=== PATIENT | female | born 1965 | race Caucasian/White ===

== ENCOUNTER 2017-04-26 09:23 | Emergency (ER) | payer OTHER ==
[2017-04-26] MEDS ORDERED: ceFUROXime TAB(*) 250 MG PO ONE (09:45)
[2017-04-26 09:57] VITALS: BP 120/80
--- NOTE | 2017-04-30 10:50 | ED ---
Nisa Navarrete Thomas, scribed for Emerson Yi MD on 04/26/17 at 0945 . Skin Complaint - HPI Summary HPI Summary: Pt is a 52 y/o female c/o a rash on her R lower back starting 9 days ago. She denies seeing a tick on her skin but suspects a tick bite. SHx: no tobacco use, no drug use, occasional alcohol use. - History of Current Complaint Chief Complaint: EDGeneral Time Seen by Provider: 04/26/17 09:30 Stated Complaint: TICK BITE RIGHT HIP Hx Obtained From: Patient Onset/Duration: Started Days Ago - at least 9 days ago Skin Exposure Onset/Duration: Days Ago, Weeks Ago Timing: Constant, Lasting Days Current Severity: Mild Pain Intensity: 3 Pain Scale Used: 0-10 Numeric Skin Location: Other: - R flank/hip Aggravating Symptom(s): Nothing Alleviating Symptom(s): Nothing Associated Signs & Symptoms: Negative Related History: Insect Bite/Sting - pt suspects tick bite - Allergy/Home Medications Allergies/Adverse Reactions: Allergies Allergy/AdvReac Type Severity Reaction Status Date / Time Erythromycin AdvReac Mild GI Upset Verified 09/18/15 13:11 Tetracycline AdvReac Mild GI Upset Verified 09/18/15 13:11 PMH/Surg Hx/FS Hx/Imm Hx Previously Healthy: No Endocrine/Hematology History: Comment Only: Hx Diabetes - pre-diabetic possibly Respiratory History: Reports: Other Respiratory Problems/Disorders - allergic rhinitis GI History: Reports: Hx Irritable Bowel History: Reports: Other Problems/Disorders - hx childhood urethral stricture d/t frequent UTI's Musculoskeletal History: Reports: Hx Back Problems - recent dx slipped disc, Hx Orthopedic Injury - ankle reconstruction, Other Musculoskeletal History - chronic neck pain Denies: Hx Rheumatoid Arthritis, Hx Osteoporosis Sensory History: Reports: Hx Hearing Problem Neurological History: Reports: Hx Headaches, Hx Migraine - Cancer History Hx Chemotherapy: No Hx Radiation Therapy: No - Surgical History Surgery Procedure, Year, and Place: TONSILLECTOMY, wisdom teeth. LEFT ANKLE SURGERY FOR BROKEN TALUS. D&C. uterine ablation Infectious Disease History: Denies: History Other Infectious Disease, Traveled Outside the [place] in Last 30 Days - Family History Known Family History: Positive: Other - POS: father brain tumor, mother/brother CA, sister thyroid disease - Social History Alcohol Use: None Substance Use Type: Reports: None Smoking Status (MU): Never Smoked Tobacco Review of Systems Constitutional: Negative Eyes: Negative ENT: Negative Cardiovascular: Negative Respiratory: Negative Gastrointestinal: Negative Genitourinary: Negative Musculoskeletal: Negative Skin: Negative Positive: Rash - R hip/flank Neurological: Negative Psychological: Normal All Other Systems Reviewed And Are Negative: Yes Physical Exam - Summary Physical Exam Summary: VITAL SIGNS: Reviewed. GENERAL: Patient is a well developed and nourished female who is lying comfortable in the stretcher. Patient is not in any acute respiratory distress. HEAD AND FACE: Normocephalic EYES: PERRLA, EOMI x 2. EARS: Hearing grossly intact. MOUTH: Oropharynx within normal limits. NECK: Supple, trachea is midline, no adenopathy, no JVD, no carotid bruit. CHEST: Symmetric, no tenderness at palpation LUNGS: Clear to auscultation bilaterally. No wheezing or crackles. CVS: Regular rate and rhythm, S1 and S2 present, no murmurs or gallops appreciated. ABDOMEN: Soft, non-tender. Bowel sounds are normal. No abdominal abnormal pulsations. EXTREMITIES: Full ROM in all major joints, no edema, no cyanosis or clubbing. NEURO: Alert and oriented x 3. No acute neurological deficits. Speech is normal and follows commands. SKIN: Dry and warm. On the R hip/flank there is a rash with central clearing. Triage Information Reviewed: Yes Vital Signs On Initial Exam: Initial Vitals Temp Pulse Resp BP Pulse Ox 97.1 F 66 16 122/85 100 04/26/17 09:24 04/26/17 09:24 04/26/17 09:24 04/26/17 09:24 04/26/17 09:24 Vital Signs Reviewed: Yes Diagnostics - Vital Signs Vital Signs Temp Pulse Resp BP Pulse Ox 04/26/17 09:24 97.1 F 66 16 122/85 100 - Laboratory Lab Results: Lab Results 04/26/17 Range/Units 09:55 Lyme Disease Serology Negative (Negative) Lab Statement: Any lab studies that have been ordered have been reviewed, and results considered in the medical decision making process. Course/Dx - Course Assessment/Plan: The patient is a 52 y/o female c/o a rash on her R lower back starting 9 days ago. She denies seeing a tick on her skin but suspects a tick bite. In the ED course, the patient shows that she had erythema with central clearing, which has been seen in Lyme disease. [place] titers will be followed by PCP in the next couple days because the Lyme titers are a send-out test. In the meantime, the patient was started on Cefuroxime 500mg BID for 20 days. This medication was chosen because the patient is allergic to tetracycline. The patient is hemodynamically stable and alert & oriented x 3. - Differential Diagnoses - Skin Complaint Differential Diagnoses: Allergic Reaction, Cellulitis, Drug Rash, Poison [place], Poison [place], Scabies - Diagnoses Provider Diagnoses: Rash, R/o lyme disease Discharge - Discharge Plan Condition: Stable Disposition: HOME Prescriptions: ceFUROXime TAB(*) [Ceftin TAB 250 MG(*)] 500 mg PO BID #40 tab Patient Education Materials: Acute Rash (ED), Tick Bite (ED) Referrals: Hollie Talley MD [Primary Care Provider] - 3 Days (Follow up with PCP.) The documentation as recorded by the Nisa ordonez Thomas accurately reflects the service I personally performed and the decisions made by Kd suarez Walter, MD.
== END 2017-04-26 10:10 | disposition home or self-care (01) ==
LOC: ED 09:23
DX: R21 Rash and other nonspecific skin eruption (principal); A69.20 Lyme disease, unspecified
CPT/HCPCS: 86618; 99282

== ENCOUNTER 2019-01-25 15:13 | Emergency (ER) | payer OTHER ==
--- NOTE | 2019-01-25 16:42 | ED ---
Abdominal Pain/Female - HPI Summary HPI Summary: 53 YO wf p/w right posterior back pain radiating to the flank since this AM, pain was so bad that she got on "her all fours" due to such intense pain, does not recall relation to food or position.. Pain does NOT radiate to the groin and has no h/o renal stones - History of Current Complaint Chief Complaint: UCBackPain Stated Complaint: BACK PAIN Time Seen by Provider: 01/25/19 15:43 Hx Obtained From: Patient Hx Last Menstrual Period: 2006 after procedure Onset/Duration: Sudden Onset, Lasting Hours Timing: Intermittent Episode Lasting Severity Initially: Severe Severity Currently: Mild Pain Intensity: 4 Allergies/Adverse Reactions: Allergies Allergy/AdvReac Type Severity Reaction Status Date / Time codeine Allergy Severe GI Upset Verified 01/25/19 17:34 erythromycin base Allergy Severe GI Verified 01/25/19 15:30 Tetracyclines Allergy Severe GI Upset Verified 01/25/19 15:30 Home Medications: Home Medications Cholecalciferol (Vitamin D3) [Vitamin D3] 1,000 unit PO DAILY 01/25/19 [History Confirmed 01/25/19] PMH/Surg Hx/FS Hx/Imm Hx Previously Healthy: Yes Endocrine/Hematology History: Comment Only: Hx Diabetes - pre-diabetic possibly Respiratory History: Reports: Other Respiratory Problems/Disorders - allergic rhinitis GI History: Reports: Hx Irritable Bowel History: Reports: Other Problems/Disorders - hx childhood urethral stricture d/t frequent UTI's Musculoskeletal History: Reports: Hx Back Problems - recent dx slipped disc, Hx Orthopedic Injury - ankle reconstruction, Other Musculoskeletal History - chronic neck pain Denies: Hx Rheumatoid Arthritis, Hx Osteoporosis Sensory History: Reports: Hx Hearing Problem Neurological History: Reports: Hx Headaches, Hx Migraine - Cancer History Hx Chemotherapy: No Hx Radiation Therapy: No - Surgical History Surgery Procedure, Year, and Place: TONSILLECTOMY, wisdom teeth. LEFT ANKLE SURGERY FOR BROKEN TALUS. D&C. uterine ablation Infectious Disease History: No Infectious Disease History: Denies: History Other Infectious Disease, Traveled Outside the [place] in Last 30 Days - Family History Known Family History: Positive: Other - POS: father brain tumor, mother/brother CA, sister thyroid disease - Social History Alcohol Use: None Substance Use Type: Reports: None Smoking Status (MU): Never Smoked Tobacco Review of Systems - ROS Summary Review of Systems Summary: Constitutional: Negative Skin: Negative Eyes: Negative ENT: Negative Cardiovascular: Negative Respiratory: Negative Gastrointestinal: RUQ and right flank tenderness Genitourinary: Negative Musculoskeletal: Negative Neurological: Negative Psychological: Normal All Other Systems Reviewed And Are Negative: Yes All Other Systems Reviewed And Are Negative: Yes Physical Exam - Summary Physical Exam Summary: Triage Information Reviewed: Yes Appearance: No Pain Distress Eye Exam: Normal ENT Exam: Normal Neck: Supple Respiratory: Lungs clear, Normal breath sounds Cardiovascular: Positive: RRR, S1, S2 Abdominal Exam: RUQ and right flank tenderness Musculoskeletal Exam: Normal Neurological Exam: CN 2-12 grossly intact Psychological Exam: Normal Skin Exam: Normal Vital Signs On Initial Exam: Initial Vitals Temp Pulse Resp BP Pulse Ox 36.6 C 65 17 110/72 98 01/25/19 15:20 01/25/19 15:20 01/25/19 15:20 01/25/19 15:20 01/25/19 15:20 Diagnostics - Vital Signs Vital Signs Temp Pulse Resp BP Pulse Ox 01/25/19 15:20 36.6 C 65 17 110/72 98 - Laboratory Lab Results: Lab Results 01/25/19 Range/Units 15:47 POC Urine Color Yellow POC Urine Clarity Clear POC Urine pH 7.0 (5-9) POC Ur Specif [place] 1.015 (1.010-1.030) POC Urine Protein Negative (Negative) POC Ur Glucose (UA) Negative (Negative) POC Urine Ketones Negative (Negative) POC Urine Blood Negative (Negative) POC Urine Nitrite Negative (Negative) POC Urine Bilirubin Negative (Negative) POC Urine Urobilinogen 0.2 (Negative) POC U Leukocyte [place] Negative (Negative) Lab Statement: Any lab studies that have been ordered have been reviewed, and results considered in the medical decision making process. Abdominal Pain Fem Course/Dx - Course Course Of Treatment: RUQ US- Cholelithiasis and positive sonographic Francisco's sign. Negative for gallbladder wallthickening or pericholecystic fluid to strongly favor acute cholecystitis. Pt to go to general surgeon to schedule a cholecystectomy, currently non-toxic, afebrile, will be on cipro/flagyl just in case GBstone gets stuck at the neck causing infection, but advised to go to ED if pain returns for eval sooner to go to OR for procedure. Gave # for Dr Adkins- surgeon and Dr Head GI for f/u - Diagnoses Provider Diagnoses: Cholecystitis, acute, Choledocholithiasis with acute cholecystitis Discharge - Sign-Out/Discharge Documenting (check all that apply): Patient Departure All imaging exams completed and their final reports reviewed: Yes - Discharge Plan Condition: Stable Disposition: HOME Prescriptions: Ciprofloxacin TAB* [Cipro 500 MG TAB*] 500 mg PO BID 10 Days #20 tab metroNIDAZOLE [Flagyl 500 MG TAB] 500 mg PO TID 10 Days #1 tab Patient Education Materials: Cholecystitis (ED), Gallstones (ED) Referrals: Aime Adkins MD [Medical Doctor] - Toby Head MD [Medical Doctor] - Additional Instructions: PLEASE GO TO ED IF INTENSE PAIN RETURNS - Billing Disposition and Condition Condition: STABLE Disposition: Home
[2019-01-25 17:38] VITALS: BP 119/75
== END 2019-01-25 18:15 | disposition home or self-care (01) ==
LOC: UCEAST 15:13
DX: K80.42 Calculus of bile duct with acute cholecystitis without obstruction (principal); E11.9 Type 2 diabetes mellitus without complications; Z88.5 Allergy status to narcotic agent; Z88.1 Allergy status to other antibiotic agents
CPT/HCPCS: 76705; 81003; 99212; G0463

== ENCOUNTER 2019-01-26 09:12 | Emergency (ER) | payer OTHER ==
[2019-01-26] MEDS ORDERED: Ondansetron INJ* 2 MG/ML VIAL IV ONE (10:12)
[2019-01-26] MEDS ORDERED: Ondansetron ODT TAB* 4 MG PO ONE (10:12)
[2019-01-26] MEDS ORDERED: Meperidine SYRINGE* 50 MG/ML IV ONE (10:12)
--- NOTE | 2019-01-26 10:17 | ED ---
Abdominal Pain/Female - HPI Summary HPI Summary: A 53 y/o female presents to [facility] with a chief complaint of abdominal pain radiating to her back since yesterday. She reports that her pain was in her flank region but now her pain is radiating to her back and up to her left shoulder blade and neck. At triage she rated her pain as a 4/10 in severity. The patient went to yesterday where she had a gallbladder ultrasound that showed gallstones. The patient reports that she did not have any bowel movements today but denies any urinary symptoms. She reports that yesterday she had a granola bar at 10:00 and an apple at 12:00 and that she hasnt eaten yet today. Vital signs while in room HR: 60 bpm, O2 Sat: 98, BP: 97/67. - History of Current Complaint Chief Complaint: EDAbdPain Stated Complaint: GAL BLADDER ISSUES PER PT Time Seen by Provider: 01/26/19 09:41 Hx Obtained From: Patient Hx Last Menstrual Period: 2006 after procedure Onset/Duration: Sudden Onset, Lasting Days, Still Present Timing: Days Severity Initially: Moderate Severity Currently: Moderate Pain Intensity: 4 Pain Scale Used: 0-10 Numeric Location: Diffuse Radiates: Yes Radiates to: Back, Other - right shoulder blade and neck Character: Other: - Unable to describe Aggravating Factor(s): Nothing Alleviating Factor(s): Nothing Associated Signs and Symptoms: Positive: Back Pain. Negative: Fever, Urinary Symptoms Allergies/Adverse Reactions: Allergies Allergy/AdvReac Type Severity Reaction Status Date / Time codeine Allergy Severe GI Upset Verified 01/26/19 09:15 erythromycin base Allergy Severe GI Verified 01/26/19 09:15 Tetracyclines Allergy Severe GI Upset Verified 01/26/19 09:15 hydrocodone Allergy Vomiting Verified 01/26/19 09:37 oxycodone Allergy Vomiting Verified 01/26/19 09:37 tramadol Allergy Vomiting Verified 01/26/19 09:37 Home Medications: Home Medications Ascorbic Acid [Vitamin C] 1,000 mg PO DAILY 01/26/19 [History Confirmed 01/26/19 ] Cholecalciferol TAB* [Vitamin D TAB*] 1,000 units PO DAILY 01/26/19 [History Confirmed 01/26/19] Multivitamin [One-Daily Multi-Vitamin] 1 tab PO DAILY 01/26/19 [History Confirmed 01/26/19] Triamcinolone NASAL SPRAY* [Nasacort Aq Nasal [place]*] 1 spray BOTH NARES DAILY PRN 01/26/19 [History Confirmed 01/26/19] PMH/Surg Hx/FS Hx/Imm Hx Endocrine/Hematology History: Comment Only: Hx Diabetes - pre-diabetic possibly Respiratory History: Reports: Other Respiratory Problems/Disorders - allergic rhinitis GI History: Reports: Hx Irritable Bowel History: Reports: Other Problems/Disorders - hx childhood urethral stricture d/t frequent UTI's Musculoskeletal History: Reports: Hx Back Problems - recent dx slipped disc, Hx Orthopedic Injury - ankle reconstruction, Other Musculoskeletal History - chronic neck pain Denies: Hx Rheumatoid Arthritis, Hx Osteoporosis Sensory History: Reports: Hx Hearing Problem Neurological History: Reports: Hx Headaches, Hx Migraine - Cancer History Hx Chemotherapy: No Hx Radiation Therapy: No - Surgical History Surgery Procedure, Year, and Place: TONSILLECTOMY, wisdom teeth. LEFT ANKLE SURGERY FOR BROKEN TALUS. D&C. uterine ablation Infectious Disease History: No Infectious Disease History: Denies: History Other Infectious Disease, Traveled Outside the [place] in Last 30 Days - Family History Known Family History: Positive: Other - POS: father brain tumor, mother/brother CA, sister thyroid disease - Social History Alcohol Use: Rare Alcohol Amount: wine occasionally Substance Use Type: Reports: None Smoking Status (MU): Never Smoked Tobacco Review of Systems Negative: Fever Positive: Abdominal Pain, Other - positive: no BM today Negative: dysuria, hematuria Positive: Arthralgia, Myalgia All Other Systems Reviewed And Are Negative: Yes Physical Exam - Summary Physical Exam Summary: Appearance: The patient is well-nourished in no acute distress and in no acute pain. Skin: The skin is warm and dry and skin color reflects adequate perfusion. HEENT: The head is normocephalic and atraumatic. The pupils are equal and reactive. The conjunctivae are clear and without drainage. Nares are patent and without drainage. Mouth reveals moist mucous membranes and the throat is without erythema and exudate. The external ears are intact. The ear canals are patent and without drainage. The tympanic membranes are intact. Neck: The neck is supple with full range of motion and non-tender. There are no carotid bruits. There is no neck vein distension. Respiratory: Chest is non-tender. Lungs are clear to auscultation and breath sounds are symmetrical and equal. Cardiovascular: Heart is regular rate and rhythm. There is no murmur or rub auscultated. There is no peripheral edema and pulses are symmetrical and equal. Abdomen: Mild epigastric tenderness. There are normal bowel sounds heard in all four quadrants and there is no organomegaly palpated. Musculoskeletal: There is no back tenderness noted. Extremities are non-tender with full range of motion. There is good capillary refill. There is no peripheral edema or calf tenderness elicited. Neurological: Patient is alert and oriented to person, place and time. The patient has symmetrical motor strength in all four extremities. Cranial nerves are grossly intact. Deep tendon reflexes are symmetrical and equal in all four extremities. Psychiatric: The patient has an appropriate affect and does not exhibit any anxiety or depression. Triage Information Reviewed: Yes Vital Signs On Initial Exam: Initial Vitals Temp Pulse Resp BP Pulse Ox 98.7 F 61 16 121/83 100 01/26/19 09:16 01/26/19 09:16 01/26/19 09:16 01/26/19 09:16 01/26/19 09:16 Vital Signs Reviewed: Yes Diagnostics - Vital Signs Vital Signs Temp Pulse Resp BP Pulse Ox 01/26/19 09:43 66 97/67 99 01/26/19 09:34 61 99 01/26/19 09:16 98.7 F 61 16 121/83 100 - Laboratory Result Diagrams: 01/26/19 10:54 01/26/19 10:54 Lab Statement: Any lab studies that have been ordered have been reviewed, and results considered in the medical decision making process. - Radiology CXR Radiology Interpretation Completed By: Radiologist Summary of Radiographic Findings: Potential obstructive lung disease; correlate with clinical assessment. No evidence for pneumonia. No evidence for acute intrathoracic disease. ED physician has reviewed this imaging report. Abdominal Pain Fem Course/Dx - Course Course Of Treatment: Ms. Holman started with right posterior shoulder pain yesterday. She was nauseated and unable to eat. When she did eat the pain was worsened. She went to the [facility] where an ultrasound was performed which showed gallstones only. They recommended she come to the emergency department to have her gallbladder out. She went home and during the night her pain worsened and went to the left shoulder posterior. She continued with nausea. When I saw her vitals are stable and she was nontoxic in appearance. She was tender in the epigastrium. Her laboratory work was unremarkable. I consulted with the surgical service and she was evaluated. She has been scheduled for elective cholecystectomy tomorrow. - Diagnoses Provider Diagnoses: Biliary colic Discharge - Sign-Out/Discharge Documenting (check all that apply): Patient Departure - DC Patient Received Moderate/Deep Sedation with Procedure: No - Discharge Plan Condition: Stable Disposition: HOME Patient Education Materials: Biliary Colic (ED), Clear Liquid Diet (ED) Referrals: Hollie Talley MD [Primary Care Provider] - Additional Instructions: Use Clear liquid diet, NPO diet. Arrive on same day for surgery at 6am. Return to the ED if you experience any new or worsening symptoms. - Billing Disposition and Condition Condition: STABLE Disposition: Home - Attestation Statements Document Initiated by Danyelle: Yes Documenting Scribe: Surinder Damon Provider For Whom Danyelle is Documenting (Include Credential): Osvaldo Blanca MD Scribe Attestation: I, Surinder Damon, scribed for Osvaldo Blanca MD on 01/26/19 at 1524. Scribe Documentation Reviewed: Yes Provider Attestation: The documentation as recorded by the Surinder ordonez accurately reflects the service I personally performed and the decisions made by me, Osvaldo Blanca MD Status of Scribe Document: Viewed
[2019-01-26] MEDS ORDERED: Meperidine Ampule* 100 MG/2 ML AMPUL IV SLOW PU ONE (11:00)
[2019-01-26 11:07] LABS: ABS Basophils 0.1 10^3/ul (0-0.2); ABS Eosinophils 0.2 10^3/ul (0-0.6); ABS Lymphocytes 1.3 10^3/ul (1.0-4.8); ABS Monocytes 0.5 10^3/ul (0-0.8); ABS Neutrophils 3.6 10^3/ul (1.5-7.7); ABS Nucleated RBC 0 10^3/ul; Eosinophil % 3.3 %; Hematocrit 41 % (33-41); Hemoglobin 13.6 g/dL (12.0-16.0); Lymphocyte % 23.6 %; Mean Corpuscular HGB Conc 33 g/dL (31-36); Mean Corpuscular Hemoglobin 30 pg (27-31); Mean Corpuscular Volume 90 fL (80-97); Mean Platelet Volume 9.2 fL (7.4-10.4); Nucleated Red Blood Cells % 0; Platelet Count 176 10^3/uL (150-450); Red Cell Distribution Width 13 % (10.5-15); White Blood Count 5.6 10^3/uL (3.5-10.8)
[2019-01-26 11:13] LABS: Urine Appearance Clear; Urine Color Yellow
[2019-01-26 11:14] LABS: Urine Bilirubin Negative (Negative); Urine Blood Negative (Negative); Urine Glucose Negative (Negative); Urine Ketones Negative (Negative); Urine Nitrite Negative (Negative); Urine Protein Negative (Negative); Urine Urobilinogen Negative (Negative)
[2019-01-26 11:31] LABS: Albumin 4.5 g/dL (3.2-5.2); Albumin/Globulin Ratio 1.6 (1-3); BUN/Creatinine Ratio 17.3 (8-20); C Reactive Protein 1.51 mg/L (<8.01); Calcium 9.7 mg/dL (8.6-10.3); EGFR African American 88.8 (>60); EGFR Non-African American 73.4 (>60); Globulin 2.9 g/dL (2-4); Potassium 3.6 mmol/L (3.5-5.0); Total Bilirubin 0.6 mg/dL (0.2-1.0); Total Protein 7.4 g/dL (6.4-8.9)
[2019-01-26 14:16] VITALS: BP 134/68
[2019-01-26] MEDS ORDERED: Buffered Lidocaine 1% SYRIN* 1 ML/SYRINGE INTRADERM ONE (15:28)
[2019-01-27] MEDS ORDERED: Lactated Ringers 1000 ML Bag* 1,000 ML IV SCH (06:00)
[2019-01-27] MEDS ORDERED: Famotidine IV* 10 MG/ML 2 ML (20 mg) IV ONE (06:00)
== END 2019-01-26 14:15 | disposition home or self-care (01) ==
LOC: ED 09:12
DX: K80.50 Calculus of bile duct without cholangitis or cholecystitis without obstruction (principal); M25.511 Pain in right shoulder; R10.13 Epigastric pain; R11.0 Nausea; Z88.1 Allergy status to other antibiotic agents; Z88.5 Allergy status to narcotic agent
CPT/HCPCS: 36415; 71046; 80053; 81003; 83605; 83690; 84484; 85025; 86140; 96374; 96375; 99283; A9270-GY; J2175; J2405

== ENCOUNTER 2019-01-27 10:05 | Day surgery (SDC) | payer OTHER ==
--- NOTE | 2019-01-26 15:32 | HP ---
CC: Dr. Hollie Talley* DATE OF ADMISSION: 01/27/2019. This patient was seen on January in the [facility] Emergency Department. ATTENDING SURGEON: Dr. Chris Varma* (dictated by Esther Mcdonald NP). CHIEF COMPLAINT: Worsening abdominal pain. HISTORY OF PRESENT ILLNESS: The patient is a 53-year-old female who reports the onset of right back pain yesterday morning around 10:00 a.m. 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 She states that she ate an apple for lunch and then at 1:30 p.m. the pain escalated and she was "on her hands and knees with pain in the right side of her back." She went to the [facility] and states that she had a gallbladder ultrasound done which revealed gallstones. She was prescribed Cipro and Flagyl and advised to have follow-up either at [facility] or the [facility] Emergency Department. She reports a very restless night with pain now also in the epigastric region associated with some nausea, but no vomiting. She denied any dysuria and had a semi-formed brown stool yesterday. She also had left- sided back pain. For the past three weeks she reports frequent heartburn and has been taking probiotics. Spicy foods have caused heartburn in the past. She has had no previous similar attacks of back or abdominal pain. She states that she has felt chills at home and her temperature was 98.8, but she states she typically runs a much lower temperature. Gallbladder ultrasound was reviewed which did reveal cholelithiasis with a dominant 2 cm stone. There was no gallbladder wall thickening, ductal dilatation, or pericholecystic fluid. On the gallbladder ultrasound report, during the exam, apparently she had a positive Francisco sign. Here in the emergency department, her white blood cell count is normal at 5.8. Her liver profile is all within normal limits with a total bilirubin of 0.60 and a lipase of 15. She has received two doses of Demerol for pain and at present is comfortable. She has not had any nausea or vomiting here in the emergency department. She last ate solid food at 7:00 p.m. last evening which was one piece of chicken , today at 7:00 a.m. she had water and a few crackers, and at 8:00 a.m. she had water. PAST MEDICAL HISTORY: Generally healthy. No acute or chronic conditions. She is followed for primary care by Dr. Hollie Talley. PAST SURGICAL HISTORY: Tonsillectomy in childhood and repair of left ankle fracture. OB HISTORY: Status post uterine ablation in 1999 and she has not had a menstrual period since 2006. CURRENT MEDICATIONS: 1. Multivitamin. 2. Vitamin C supplement. 3. Vitamin D3 supplement. ALLERGIES: TETRACYCLINE AND ERYTHROMYCIN CAUSED GI UPSET. TRAMADOL, HYDROCODONE, AND OXYCODONE ALL CAUSE SEVERE VOMITING. She did tolerate Demerol in the emergency department. FAMILY HISTORY: The patient's sister had a cholecystectomy in her early 50s. No known anesthesia complications, bleeding tendencies, or clotting disorders in the family. SOCIAL HISTORY: She is and her accompanies her in the emergency department today. She is a nonsmoker and denies the use of alcohol or other substances. 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 REVIEW OF SYSTEMS: Constitutional: No fever, occasional chills at home last night, no excessive fatigue. General: No history of anesthesia complications or bleeding tendencies. No history of deep vein thrombosis or pulmonary embolism. Endocrine: No diabetes or thyroid disease. Respiratory: No dyspnea on exertion, no chronic cough. Cardiovascular: No anginal chest pain, no palpitations. Typically is very active with good exercise tolerance. Gastrointestinal: As described in history of present illness. Genitourinary: No dysuria, no dark urine, no history of kidney stones, no recent urinary tract infection. Musculoskeletal: No chronic joint or back pain. Neurologic: Status post concussion in 2012 when she fell off of a horse. No history of seizures. PHYSICAL EXAMINATION GENERAL: The patient is a 53-year-old female, well-developed, well-nourished, in no acute distress. VITAL SIGNS: Height 5'2", weight 155 pounds, body mass index 28. Blood pressure 100/66, pulse 55 and regular, respiratory rate 18, temperature 98, O2 saturation on room air 99 percent. SKIN: Warm, dry. No jaundice. HEENT: Benign. Anicteric sclerae. NECK: Supple. No cervical lymphadenopathy. LUNGS: Breath sounds bilaterally clear and equal. HEART: Regular rate and rhythm. No murmurs or rubs appreciated. ABDOMEN: Active bowel sounds. Soft and nondistended. She is most tender in the epigastrium, but there is no guarding. Negative Francisco sign. No obvious masses, no organomegaly. EXTREMITIES: Full range of motion. No edema or skin ulcerations. PELVIC: Exam deferred. RECTAL: Exam deferred. NEUROLOGIC: Alert and oriented times three. IMPRESSION: Symptomatic cholelithiasis. PLAN: As discussed with Dr. Lawson who was here in the hospital and also evaluated the patient. She will be discharged to home today on clear liquids. She will be NPO after midnight and she will return to the hospital tomorrow morning at 6:00 a.m. for a laparoscopic cholecystectomy. The nature of the surgical procedure was described and the typical postoperative recovery was described. The patient is in agreement with the plan and the plan was communicated to Dr. Osvaldo Blanca in the emergency department. She was in stable condition and pain free. TIME SPENT: 75 minutes, with greater than 50% in history taking and coordination of care. RENETTA MCDONALD, [place] [id number]/CPS #: [id number] ALPHONSE
[2019-01-27] MEDS ORDERED: Buffered Lidocaine 1% SYRIN* 1 ML/SYRINGE INTRADERM ONE (10:26)
[2019-01-27] MEDS ORDERED: ceFAZolin 2 GM in NS PREMIX(*) 2 GM/100 ML BAG IVPB ONE (10:26)
[2019-01-27] MEDS ORDERED: Famotidine IV* 10 MG/ML 2 ML (20 mg) ONE (11:07)
[2019-01-27] MEDS ORDERED: HYDROmorphone INJ1* 1 MG/ML SYRINGE IV PRN (11:41)
[2019-01-27] MEDS ORDERED: Naloxone* 0.4 MG/ML 1 ML VIAL IV PRN (11:41)
[2019-01-27] MEDS ORDERED: Acetaminophen IV 1GM/100ML * 1,000 MG/100 ML VIAL IVPB ONE (11:41)
[2019-01-27] MEDS ORDERED: DiMENhydriNATE IV* 50 MG/ML VIAL IV PUSH PRN (11:41)
[2019-01-27] MEDS ORDERED: Bupivacaine 0.25% W/EPI* 10 ML SDV ONE (11:43)
[2019-01-27] MEDS ORDERED: fentaNYL* 50 MCG/ML 2 ML VIAL (100 MCG VIAL) ONE (12:00)
[2019-01-27] MEDS ORDERED: Scopolamine 1.5 mg* PATCH TRANSDERM SCH (12:00)
[2019-01-27] MEDS ORDERED: Midazolam* 1 MG/ML 5 ML VIAL (5 MG) ONE (12:01)
[2019-01-27] MEDS ORDERED: Rocuronium* 10 MG/ML VIAL ONE (12:22)
[2019-01-27] MEDS ORDERED: DiMENhydriNATE IV* 50 MG/ML VIAL ONE (12:30)
[2019-01-27] MEDS ORDERED: Ketorolac INJ* 30 MG/ML 1 ML VIAL ONE (12:30)
[2019-01-27] MEDS ORDERED: Dexamethasone IV* 4 MG/ML 1 ML (4 MG) ONE (12:30)
[2019-01-27] MEDS ORDERED: Succinylcholine* 20 MG/ML 10 ML VIAL ONE (12:30)
[2019-01-27] MEDS ORDERED: Ondansetron INJ* 2 MG/ML VIAL ONE (12:30)
[2019-01-27] MEDS ORDERED: Lidocaine 2% PF * 5 ML VIAL ONE (12:30)
[2019-01-27] MEDS ORDERED: Propofol* 10 MG/ML 20 ML BTL ONE (12:30)
--- NOTE | 2019-01-27 13:20 | OP ---
Operative Report - Blank - Operative Report Date of Operation: 01/27/19 Note: Brief Operative Note Preop Dx: biliary colic; cholelithiasis Postop Dx: same Procedure: laparoscopic cholecystectomy Anesthesia: GET Surgeon: Kojo Spd Manager: ERICH Johnson; ERIKA Littlejohn Fluids: 1300 ml RL EBL: < 10 ml Specimen: gallbladder Drains: none Findings: dictated
[2019-01-27] MEDS ORDERED: Neostigmine Methylsulfate* 1 MG/ML 10 ML VIAL (1 mg/ml) ONE (13:28)
[2019-01-27] MEDS ORDERED: Glycopyrrolate IV* 0.2 MG/ML 1 ML VIAL ONE (13:28)
[2019-01-27] MEDS ORDERED: Acetaminophen IV 1GM/100ML * 100 ML ONE (13:37)
[2019-01-27] MEDS ORDERED: HYDROmorphone INJ1* 1 MG/ML SYRINGE ONE (13:57)
[2019-01-27 17:09] VITALS: BP 106/69
--- NOTE | 2019-01-31 10:34 | OP ---
CC: Hollie Talley MD OPERATIVE REPORT: DATE OF OPERATION: 01/27/19 DATE OF : 61 SURGEON: Chris Varma MD PIN INSERTER REGULATOR: ERICH Moreno ANESTHESIOLOGIST: Pili Sellers MD ANESTHESIA: General endotracheal. PRE-OP DIAGNOSES: Biliary colic and cholelithiasis. POST-OP DIAGNOSES: Biliary colic and cholelithiasis. OPERATIVE PROCEDURE: Laparoscopic cholecystectomy. ESTIMATED BLOOD LOSS: Less than 10 mL. IV FLUIDS: 1.3 L of crystalloid. SPECIMEN: Gallbladder. DRAINS: None. COMPLICATIONS: None. COUNTS: The instrument, needle, and sponge counts are correct. DESCRIPTION OF PROCEDURE: The patient was brought to the operating room and placed on the table supi ne. Sequential compression devices were placed on both lower extremities. General anesthesia was ad ministered. She was positioned and padded appropriately and received appropriate intravenous antibio tics. She was prepped and draped in the usual sterile fashion, then time-out was performed. Local anesthetic was infiltrated into the skin and soft tissue prior to making each incision. Entry into the abdomen was through a transumbilical incision using an open technique. After accessing the peritoneal cavity, carbon dioxide was insufflated to a pressure of 15 mmHg through a 12-mm trocar. U nder direct visualization, 5-mm trocars were placed 1 in the subxiphoid position and 2 in the right u pper quadrant. The gallbladder was identified. The fundus was grasped and retracted cephalad. This exposed the infundibulum, which was able to be grasped and retracted. The peritoneum investing the gallbladder was incised, dissected free and the dissection proceeded on the medial and lateral aspect s of the cystic duct to identify it and also to identify the cystic artery. After obtaining critical view, the 2 structures were doubly clipped and divided. The gallbladder was freed from the attachme nts to the liver using the cautery and staying in the avascular plane. Once the gallbladder was free d, it was placed into an endoscopic retrieval bag and retrieved through the umbilical site. Hemostas is was assured and clips were noted to be intact. Ports removed under direct visualization. Carbon dioxide was released. Umbilicus was closed with 0 Vicryl in [id number] fashion to approximate t he fascia. Skin incisions were closed with 4-0 Monocryl in subcuticular fashion. The Steri-Strips w ere applied. The patient tolerated the procedure well, was extubated uneventfully and transferred to recovery room in stable condition. [id number]/[facility] #: [id number]
== END 2019-01-27 17:13 | disposition home or self-care (01) ==
LOC: OR 10:05
PROVIDERS: ATTEND Surgery
DX: K80.10 Calculus of gallbladder with chronic cholecystitis without obstruction (principal)
CPT/HCPCS: 88304; J0330; J0690; J1100; J1170; J1240; J1885; J2250; J2405; J2704; J2710; J3010